=== PATIENT | male | born 1985 | race African-American/Black ===

== ENCOUNTER 2022-03-24 11:07 | Emergency (ER) | payer SELFPAY ==
[~2022-03-24] VITALS: Ht 177.8 cm; Wt 70.0 kg
[2022-03-24] MEDS ORDERED: TOBRAMYCIN0.3 % OD (12:01)
[2022-03-24] MEDS ORDERED: CEPHALEXIN500 M1 PO (12:01)
[2022-03-24 12:25] VITALS: BP 125/78
== END 2022-03-24 12:25 | disposition home or self-care (01) | DRG 125 ==
LOC: ED 11:07 → WW 11:07 → ED 11:48
DX: S05.01XA Injury of conjunctiva and corneal abrasion without foreign body, right eye, initial encounter (principal); X58.XXXA Exposure to other specified factors, initial encounter